=== PATIENT | male | born 1955 | race Two or more races ===

== ENCOUNTER 2016-08-17 19:39 | Emergency (ER) | payer OTHER ==
--- NOTE | ~2016-08-17 | CR181 ---
[facility]. [facility] A Service of [facility] & [facility] RADIOLOGY TEXT RESULTS PATIENT: MICHI PALMA LOCATION: SED : 53 UNIT #: [id number] AGE: [address]: Danay Judge MD SEX: M ORDER DR: [id number] [place] [id number] E MR#: [id number] #: [id number] NAME: MICHI PALMA : 1955 SEX: M STUDY DATE/TIME: 08/17/2016 19:51 UNIT: SED ROOM: STUDY DESCRIPTION: CR Lumbar Spine 2 or 3 Views Attending Physician: Danay Judge M.D. Ordering Physician: Danay Judge M.D. Primary Care Physician: No Primary Care Physician MEDICAL IMAGING REPORT This report is preliminary unless electronic signature is present. EXAM Lumbar spine 3 views HISTORY Back pain for 3 days. No injury. FINDINGS 3 views of the lumbar spine demonstrate mild left lower lumbar curve. Moderately severe degenerative disc space narrowing at L4-L5 and L5-S1 with moderate associated hypertrophic changes. No fracture or subluxation. Mild degenerative facet arthropathy in the lower lumbar spine. 5 mm left lateral subluxation of L4 on L5, probably on a degenerative basis. IMPRESSION No acute findings. Degenerative changes in the lower lumbar spine. Dictated by... Rishi Cowan M.D. THIS IS AN ELECTRONICALLY VERIFIED REPORT Rishi Cowan M.D. at 08/18/2016 11:40 PM DFL/rnr TD: 08/17/2016 23:16 JOB #: [id number] MEDICAL IMAGING REPORT Page 1 of 1
[2016-08-17 20:26] LABS: URINE SOURCE CLEAN CATCH
[2016-08-17 20:28] LABS: URINE APPEARANCE CLEAR; URINE BILIRUBIN NEG (NEG); URINE BLOOD 2+ (NEG); URINE COLOR YELLOW; URINE GLUCOSE NEG (NORM); URINE KETONE NEG (NEG); URINE LEUKOCYTE ESTERASE NEG (NEG); URINE NITRATE NEG (NEG); URINE PROTEIN NEG (NEG); URINE SPECIFIC GRAVITY >=1.030 (1.003-1.035)
[2016-08-17 20:30] LABS: MICRO INDICATED? YES
[2016-08-17 20:33] LABS: URINE BACTERIA NEG (NEG); URINE RBC 100-200 /[HPF] (0-2)
[2016-08-17 20:34] LABS: URINE MUCUS PRESENT; URINE SQUAMOUS EPITHELIAL CELL OCCAS /[HPF]; URINE TRANSITIONAL EPI CELLS FEW /[HPF]
== END 2016-08-17 21:14 | disposition home or self-care (01) ==
LOC: SED 19:39
PROVIDERS: Emergency Medicine
DX: S39.012A Strain of muscle, fascia and tendon of lower back, initial encounter (principal); M46.96 Unspecified inflammatory spondylopathy, lumbar region; F17.200 Nicotine dependence, unspecified, uncomplicated; X58.XXXA Exposure to other specified factors, initial encounter; Y92.9 Unspecified place or not applicable
CPT/HCPCS: 72100; 81003; 96372; 99283; J2360